=== PATIENT | male | born 1965 | race Caucasian/White ===

== ENCOUNTER 2024-12-16 10:20 | Emergency (ER) | payer MEDICAID ==
[~2024-12-16] VITALS: Ht 165.1 cm; Wt 70.0 kg
[2024-12-16 10:22] VITALS: O2SAT 99
[2024-12-16] MEDS: MECLIZINE 25MG TABLET PO STA ×2 (10:42→13:06)
[2024-12-16] MEDS: SODIUM CHLORIDE 0.9% 1,000 ML IV ONE (10:58)
[2024-12-16] MEDS: ONDANSETRON HCL 4MG/2ML INJ IV ONE (10:58)
[2024-12-16] MEDS: DIAZEPAM 5 MG/ML 2ML SYR IV ONE (11:08)
[2024-12-16 11:14] LABS: BASOPHILS % 0.8 % (0.0-2.0); EOSINOPHILS % 1.7 % (0.0-5.0); HEMATOCRIT. 48.1 % (42.0-52.0); HEMOGLOBIN. 15.9 g/dL (14.0-18.0); LYMPHOCYTES % 24.4 % (20.0-50.0); MEAN PLATELET VOLUME 10.3 fl (7.4-10.4); MONOCYTES % 6.6 % (2.0-8.0); NEUTROPHILS % 66.5 % (40.0-76.0); PLATELET 234 x1000/uL (130-400); RED BLOOD CELL COUNT 5.45 mill/uL (4.7-6.1); RED CELL DISTRIBUTION WIDTH 13.7 % (11.6-14.6)
[2024-12-16 11:26] LABS: CREATININE 0.9 mg/dL (0.6-1.3); UREA NITROGEN BLOOD 9 mg/dL (9-23)
[2024-12-16 11:28] LABS: ASPARTATE AMINOTRANSFERASE 21 IU/L (<34); BILIRUBIN DIRECT 0.2 mg/dL (<=3.0); BILIRUBIN TOTAL 0.8 mg/dL (0.1-1.0); PROTEIN TOTAL 7.0 g/dL (6.0-8.3)
[2024-12-16] MEDS ORDERED: ONDA-241 MT (14:12)
[2024-12-16] MEDS ORDERED: MECL-299 MT (14:12)
[2024-12-16 14:22] VITALS: BP 154/74; PULSE 69; RESP 15; TEMP 36.7; O2SAT 100
== END 2024-12-16 14:24 | disposition home or self-care (01) ==
LOC: ER 10:20 → UNDOADMIN 12:29 → 6EST 12:29 → EDBEDREQTM 12:41 → EDBEDREQ 12:41 → ENRESERV 13:01 → UNDODISIN 17:54
DX: R11.2 Nausea with vomiting, unspecified (principal); R42 Dizziness and giddiness; Z79.899 Other long term (current) drug therapy
CPT/HCPCS: 99285; 96374; 70450; 96361; 80076; 80048; 83735; 85025; 36415; J8597; J2405; J7030; A4606